=== PATIENT | female | born 1955 | race Caucasian/White ===

== ENCOUNTER 2017-06-22 20:35 | Emergency (ER) | payer BC ==
[~2017-06-22] VITALS: Ht 167.6 cm; Wt 77.4 kg
[~2017-06-22 20:35] MED LIST: COZAAR100 MG PO; Cozaar PO; EFFEXOR XR75 MG PO; Ecotrin PO; Effexor XR PO; Levothroid,Synthroid PO; PERCOCET 5/31 TABLET PO; PRAVACHOL40 MG PO; PROTONIX40 MG PO; Pravachol PO; Protonix PO; SYNTHROID100 MCG PO
[2017-06-22] MEDS ORDERED: MOTRIN800 MG PO (22:30)
[2017-06-23 00:03] VITALS: BP 127/74
== END 2017-06-23 00:06 | disposition home or self-care (01) ==
LOC: EME 20:35
DX: S42.461A Displaced fracture of medial condyle of right humerus, initial encounter for closed fracture (principal); S52.021A Displaced fracture of olecranon process without intraarticular extension of right ulna, initial encounter for closed fracture; S52.121A Displaced fracture of head of right radius, initial encounter for closed fracture; W10.8XXA Fall (on) (from) other stairs and steps, initial encounter; W01.0XXA Fall on same level from slipping, tripping and stumbling without subsequent striking against object, initial encounter; I10 Essential (primary) hypertension; Z88.0 Allergy status to penicillin; Z88.2 Allergy status to sulfonamides; F17.210 Nicotine dependence, cigarettes, uncomplicated
CPT/HCPCS: 73060; 73080; 99281; 99284

== ENCOUNTER → 2017-06-28 | Outpatient (CLI) | payer BC ==
[~2017-06-28] MED LIST changes: +CRESTOR40 MG PO; +EFFEXOR75 MG PO; +MICROZIDE12.5 M1 PO; +MOTRIN800 MG PO
== END | disposition home or self-care (01) ==
LOC: CDC 09:42
DX: M25.521 Pain in right elbow (principal); S52.121A Displaced fracture of head of right radius, initial encounter for closed fracture; S52.044A Nondisplaced fracture of coronoid process of right ulna, initial encounter for closed fracture
CPT/HCPCS: 93000

== ENCOUNTER 2017-06-30 12:43 | Day surgery (SDC) | payer BC ==
[~2017-06-30] VITALS: Ht 167.6 cm; Wt 74.8 kg
[2017-06-30 13:02] VITALS: BP 128/75
[2017-06-30 20:11] VITALS: BP 117/74
[2017-06-30 20:38] VITALS: BP 105/64
== END 2017-06-30 20:45 | disposition home or self-care (01) ==
LOC: SDC 12:43
PROC: 0PRH0JZ Replacement of Right Radius with Synthetic Substitute, Open Approach (ICD-10-PCS; principal; 2017-06-30)
DX: S52.121A Displaced fracture of head of right radius, initial encounter for closed fracture (principal); I10 Essential (primary) hypertension; F32.9 Major depressive disorder, single episode, unspecified; E03.9 Hypothyroidism, unspecified; E78.5 Hyperlipidemia, unspecified; K21.9 Gastro-esophageal reflux disease without esophagitis; Z98.84 Bariatric surgery status; Z82.49 Family history of ischemic heart disease and other diseases of the circulatory system; Z83.3 Family history of diabetes mellitus; Z83.49 Family history of other endocrine, nutritional and metabolic diseases; Z80.9 Family history of malignant neoplasm, unspecified; W18.39XA Other fall on same level, initial encounter; Y92.007 Garden or yard of unspecified non-institutional (private) residence as the place of occurrence of the external cause; Z88.0 Allergy status to penicillin; Z88.2 Allergy status to sulfonamides; Z88.1 Allergy status to other antibiotic agents
CPT/HCPCS: 71045; 71046; 73070; 76000; J0131; J1100; J1170; J2250; J2405; J2710; J7643; Q0175; S0020